=== PATIENT | male | born 1975 | race Caucasian/White ===

== ENCOUNTER 2017-11-16 22:21 | Emergency (ER) | payer BC ==
--- NOTE | 2017-11-16 22:33 | Emergency Department Record ---
History of Present Illness - General Chief complaint: ENT Stated complaint: LT SIDE JAW SWELLING Time Seen by Provider: 11/16/17 22:27 Source: Patient Mode of Arrival: Ambulatory Limitations: No limitations - History of Present Illness Initial comments: 42 yo male presents to ED for evaluation of left sided facial swelling that began this morning. Patient denies fevers, chills, or recent facial trauma symptoms. Patient was evaluated at Urgent Care, was started in Amoxicillin and told to use lemon drops to stimulate the gland in case of obstruction. Patient reports using the lemon drops that resulted in worsening of his facial swelling symptoms tonight. Patient also reports worsening swelling with eating. Patient denies health problems at his baseline. MD complaint: Other (STS left face) Onset/Timin -: Days(s) Severity: Moderate Quality: Aching Consistency: Constant Improves with: None Worsens with: Eating - Related Data Home Medications Medication Instructions Recorded Confirmed Last Taken Fenofibrate Nanocrystallized 145 mg PO DAILY 11/16/17 11/16/17 Unknown [Tricor] Losartan/Hydrochlorothiazide 1 each PO DAILY 11/16/17 11/16/17 Unknown [Hyzaar 100-25 Tablet] Previous Rx's Medication Instructions Recorded Amoxicillin/Potassium Clav 1 tab PO BID #20 tab 11/17/17 [Augmentin 875-125 Tablet] Review of Systems Constitutional: Denies: Chills, Fever, Malaise, Night sweats Eyes: Denies: Eye discharge, Eye pain ENT: Reports: Other (Left sided facial swelling/pain). Denies: Congestion, Ear pain, Epistaxis Respiratory: Denies: Cough, Dyspnea Cardiovascular: Denies: Chest pain, Dyspnea on exertion Endocrine: Denies: Fatigue, Heat or cold intolerance Gastrointestinal: Denies: Abdominal pain, Nausea, Vomiting Genitourinary: Denies: Incontinence, Retention Musculoskeletal: Denies: Arthralgia, Back pain, Gout, Joint swelling Skin: Denies: Bruising, Change in color Neurological: Denies: Abnormal gait, Confusion, Headache, Seizure Psychiatric: Denies: Anxiety Hematological/Lymphatic: Denies: Anemia, Blood Clots Physical Exam - General General Appearance: Alert, Oriented x3, Cooperative, Mild distress Limitations: No limitations - Head Head exam: Atraumatic Head exam detail: General tenderness, Other (STS of the left face just anterior to the mandible). negative: Abrasion, Contusion, Franks's sign, Hematoma, Laceration Image of Face/Head: 1 - STS, firm to palpation - Eye Eye exam: Normal appearance, Periorbital swelling. negative: Conjunctival injection, Periorbital tenderness, Scleral icterus - ENT Ear exam: negative: Auricular hematoma, Auricular trauma Nasal Exam: negative: Active bleeding, Discharge, Dried blood, Foreign body Mouth exam: negative: Drooling, Laceration, Tongue elevation Teeth exam: negative: Dental caries, Dental tenderness # Throat exam: negative: Tonsillar erythema, Tonsillomegaly, R peritonsillar mass , L peritonsillar mass - Neck Neck exam: Normal inspection. negative: Meningismus, Tenderness - Respiratory Respiratory exam: Normal lung sounds bilaterally. negative: Rales, Respiratory distress, Rhonchi, Stridor - Cardiovascular Cardiovascular Exam: Regular rate, Normal rhythm, Normal heart sounds - GI/Abdominal GI/Abdominal exam: Soft. negative: Rebound, Rigid, Tenderness - Rectal Rectal exam: Deferred - exam: Deferred - Extremities Extremities exam: Normal inspection. negative: Calf tenderness, Pedal edema, Tenderness - Back Back exam: Denies: CVA tenderness (R), CVA tenderness (L) - Neurological Neurological exam: Alert, Normal gait, Oriented X3 - Psychiatric Psychiatric exam: Normal affect, Normal mood - Skin Skin exam: Normal color. negative: Abrasion Type of lesion: negative: abrasion Course - Reevaluation(s) Reevaluation #1: 11/16/17 23:09 Labs reviewed and are grossly unremarkable for an acute process. Patient is going for CT imaging at this time. Reevaluation #2: 11/17/17 00:03 CT Soft-tissue neck: Left sided parotiditis with adjacent cellulitis Multiple pulmonary nodules, could be infectious vs. inflammatory. recommend follow-up CT imaging in 3-6 months Patient and his SO updated on all results, will initiate treatment with Clindamycin in ED with outpatient treatment with Augmentin as directed. Patient is otherwise well appearing and stable for discharge at this time. Medical Decision Making - Lab Data Result diagrams: 11/16/17 22:36 11/16/17 22:36 Disposition Disposition: Discharge Clinical Impression: Parotiditis Disposition: Home, Self-Care Condition: (2) Stable Instructions: Sialoadenitis (ED) Additional Instructions: Return to ED if your symptoms worsen or if you have any concerns. Augmentin as directed. Follow-up with your family doctor in 3-5 days as directed. Follow-up CT imaging of the chest in 3-6 months for pulmonary nodules. Prescriptions: Amoxicillin/Potassium Clav [Augmentin 875-125 Tablet] 1 tab PO BID #20 tab Forms: Patient Portal Access Time of Disposition: 00:07 Quality - Quality Measures Quality Measures: N/A - Blood Pressure Screening Does Patient Have Any of the Following: No Blood Pressure Classification: Hypertensive Reading Systolic Measurement: 166 Diastolic Measurement: 98 Screening for High Blood Pressure: < First Hypertensive BP, F/U Documented > [ [id number]] First Hypertensive Follow-up Interventions: Referral to alternative/primary care provider.
[2017-11-16 22:47] LABS: BASO % 0.1 % (0-6); EOS % 1.1 % (0-6); GRAN % 58.1 % (47-80); HEMATOCRIT 46.4 % (42.0-52.0); HEMOGLOBIN 16.8 gm/dl (14.0-18.0); LYMPH % 33.8 % (16-45); MEAN CELL VOLUME 85.6 fl (81-97); MEAN CORPUSCULAR HGB CONC 36.2 g/dl (32-36); MEAN PLATELET VOLUME 8.4 fl (7.4-10.4); MONO % 6.9 % (0-9); PLATELET COUNT 208 K/uL (130-400); RED BLOOD COUNT 5.42 M/uL (4.40-5.70); RED CELL DISTRIBUTION WIDTH 12.6 % (11.5-14.5); WHITE BLOOD COUNT W/O DIFF 9.2 K/uL (4.2-12.2)
[2017-11-16 22:58] LABS: BLOOD UREA NITROGEN 22 mg/dL (6-20); CREATININE 1.2 mg/dL (0.7-1.2); EST GLOMERULAR FILTRATION RATE > 60 mL/min
[2017-11-16 22:59] LABS: TOTAL PROTEIN 7.9 g/dL (6.6-8.7)
[2017-11-16 23:01] LABS: GLUCOSE,RANDOM 138 mg/dL (74-109)
[2017-11-16 23:04] LABS: ALB/GLOB RATIO 1.2 (1.1-1.8); ALBUMIN 4.3 g/dL (4.0-5.0); ALKALINE PHOSPHATASE 47 U/L (40-129); ALT/SGPT 65 U/L (<41); AST/SGOT 54 U/L (10.0-50.0)
[2017-11-17] MEDS ORDERED: CLINDAMYCIN 600MG/50ML PREMIX 600 MG/50 ML BAG IVPB ONE (00:03)
--- NOTE | 2017-11-18 07:06 | CT SCAN REPORT ---
DATE: 11/16/2017 at 11:14 p.m. EXAM: EMERGENCY CT SCAN OF THE NECK WITH CONTRAST. HISTORY: Left-sided neck soft tissue swelling and left-sided jaw pain. TECHNIQUE: Axial CT scan of the neck performed following the intravenous administration of 85 mL of Omnipaque 300 as the intravenous contrast. Preliminary report provided by [facility]. COMPARISON: None. FINDINGS: There is some membrane thickening anteriorly in the right ethmoid sinus. There is a cyst or polyp on the floor of the left maxillary antrum measuring about 1.5 cm in size. There is some deviation of the nasal septum to the left. Degenerative change at the odontoid/anterior arch of C1 articulation and a prominent spur along the posterior aspect of the C4-5 interspace in the midline. No abnormal air collection seen within either orbit. There is asymmetry in the parotid glands with the right parotid gland appearing unremarkable but with the left parotid gland appearing somewhat enlarged and heterogeneous with some blurring of the borders, particularly with the adjacent masseter muscle, and also some hazy increased density in the overlying subcutaneous adipose tissue. Findings probably represent a parotiditis with some adjacent overlying cellulitis. No discrete fluid collection within the parotid or within the overlying subcutaneous tissues to suggest a discrete abscess identified. The apparent cellulitis extends inferiorly lateral to the left submandibular gland as well, but the left submandibular gland itself appears unremarkable. There are some mildly prominent cervical nodes on the left which are probably just reactive. The right submandibular gland appears negative. The thyroid gland appears negative bilaterally. No adenopathy is seen in the visualized upper mediastinum. Mild ectasia of the visualized ascending aorta measuring up to about 3.7 cm in diameter. There are multiple pulmonary nodules seen in both upper lungs. The largest of these measures about 6.0 mm in size bilaterally. These are nonspecific, and a follow-up current chest CT might be useful to more fully assess for the extended pulmonary nodules within the lungs. There do appear to be dental carries involving some of the teeth, particularly some of the right mandibular molars. Dental consultation may be useful. The epiglottis is of normal size. No prevertebral soft tissue swelling is evident. IMPRESSION: 1. FINDINGS SUGGESTING PAROTIDITIS ON THE LEFT WITH SOME OVERLYING CELLULITIS. NO DISCRETE SOFT TISSUE ABSCESS IDENTIFIED. 2. SOME DENTAL CARRIES ARE PRESENT. 3. MULTIPLE PULMONARY NODULES ARE VISUALIZED IN THE UPPER LUNGS. CURRENT CHEST CT WITH CONTRAST SUGGESTED FOR FURTHER EVALUATION. 4. SOME ECTASIA OF THE ASCENDING AORTA MEASURING ABOUT 3.7 CM IN DIAMETER. 5. CYST OR POLYP ON THE FLOOR OF THE LEFT MAXILLARY ANTRUM. JOB NUMBER: [id number] MTDD
== END 2017-11-17 00:35 | disposition home or self-care (01) ==
LOC: ER 22:21
DX: K11.21 Acute sialoadenitis (principal); L03.211 Cellulitis of face; R91.8 Other nonspecific abnormal finding of lung field
CPT/HCPCS: 99284 ×2; 96374; 85025; 80053; 70491; Q9967